=== PATIENT | female | born 1985 | race Two or more races ===

== ENCOUNTER 2020-11-13 09:00 | Emergency (ER) | payer OTHER ==
[~2020-11-13] VITALS: Ht 152.4 cm; Wt 38.6 kg
[2020-11-13] MEDS ORDERED: KETO10TA2 PO (16:07)
[2020-11-13] MEDS ORDERED: INTESTINEX680 M1 PO (16:07)
[2020-11-13] MEDS ORDERED: BACTRIM DS TAB1 EACH PO (16:07)
[2020-11-13] MEDS ORDERED: PYRIDIUM DS200 MG PO (16:07)
== END 2020-11-13 16:11 | disposition home or self-care (01) ==
LOC: ER 09:00
DX: N39.0 Urinary tract infection, site not specified (principal); R31.0 Gross hematuria; R10.2 Pelvic and perineal pain; Z03.818 Encounter for observation for suspected exposure to other biological agents ruled out